=== PATIENT | female | born 1985 | race Hispanic/Latino ===

== ENCOUNTER 2024-03-27 11:35 | Emergency (ER) | payer OTHER ==
[~2024-03-27] VITALS: Ht 162.6 cm; Wt 145.3 kg
[~2024-03-27 11:35] MED LIST: ASPIRIN EC325 MG PO; DICLOFENAC SODI75 MG PO; GABAPENTIN600 MG PO; IBU600 MG PO; LISINOPRIL10 MG PO; MULTI VITAMIN1 EACH PO; OXYCODONE HCL5 MG PO; VIT C-ROSE HIP500 MG PO; VITAMIN D325 MCG PO; XARELTO10 MG PO
[2024-03-27] MEDS ORDERED: ATORVASTATIN CA20 MG PO (11:54)
[2024-03-27] MEDS ORDERED: GLIPIZIDE ER5 MG PO (11:54)
[2024-03-27] MEDS ORDERED: LEVOTHYROXINE75 MCG PO (11:54)
[2024-03-27] MEDS ORDERED: VITAMIN D21250 MCG PO (11:55)
[2024-03-27] MEDS ORDERED: AMOX TR-K CLV1 EAC1 PO (12:36)
[2024-03-27 12:45] VITALS: BP 153/96
== END 2024-03-27 12:45 | disposition home or self-care (01) ==
LOC: ED 11:35
DX: K04.7 Periapical abscess without sinus (principal); K02.9 Dental caries, unspecified; E11.9 Type 2 diabetes mellitus without complications; Z79.84 Long term (current) use of oral hypoglycemic drugs; Z79.890 Hormone replacement therapy; Z79.899 Other long term (current) drug therapy
CPT/HCPCS: 99282

== ENCOUNTER 2024-06-14 14:06 | Emergency (ER) | payer OTHER ==
[~2024-06-14] VITALS: Ht 162.6 cm; Wt 135.0 kg
[~2024-06-14 14:06] MED LIST changes: +AMOX TR-K CLV1 EAC1 PO; +ATORVASTATIN CA20 MG PO; +GLIPIZIDE ER5 MG PO; +LEVOTHYROXINE75 MCG PO; +VITAMIN D21250 MCG PO
[2024-06-14] MEDS ORDERED: AMOX TR-K CLV1 EAC1 PO (16:19)
[2024-06-14 16:25] VITALS: BP 148/93
== END 2024-06-14 16:27 | disposition home or self-care (01) ==
LOC: ED 14:06
DX: K04.7 Periapical abscess without sinus (principal); S02.5XXA Fracture of tooth (traumatic), initial encounter for closed fracture; E11.9 Type 2 diabetes mellitus without complications; I10 Essential (primary) hypertension; Z79.890 Hormone replacement therapy; Z79.84 Long term (current) use of oral hypoglycemic drugs; Z79.899 Other long term (current) drug therapy; X58.XXXA Exposure to other specified factors, initial encounter
CPT/HCPCS: 99282